=== PATIENT | male | born 1940 | race Caucasian/White ===

== ENCOUNTER 2016-12-01 16:43 | Emergency (ER) | payer MEDICARE, BC ==
[~2016-12-01] VITALS: Ht 182.9 cm; Wt 95.5 kg
[~2016-12-01 16:43] MED LIST: ACET-2321 PO; ASPI-557 PO; ASPI-917 PO; ATEN-39 PO; ATOR20TA PO; CYAN25006 SL; DULO20CA PO; FEXO180T94 PO; GABA-338 PO; NAPR220C11 PO; NIAC1CAP PO; OMEP-96 PO; OXYC5TAB84 PO; POLY17PO18 PO; TRAZ-170 PO; [UNRECOGNIZED DRUG - CODE] PO
--- OUTSIDE RECORDS SUMMARY | 2016-12-01 16:48 | XMS REPORT | Continuity of Care Document ---
Author Author [facility] Organization [facility] Address Unknown Phone Unavailable Allergies Active Description Code Type Severity Reaction Onset Reported/Identified Relationship to Patient Clinical Status Yes penicillin NKMA N/A N/A 12/21/2013 Medications Problems Procedures Results Encounters ACCT No. Visit Date/Time Discharge Status Pt. Type Provider Facility Loc./Unit Complaint [id number] 08/31/2013 09:48:00 08/31/2013 23 :59:59 CLS Outpatient [id number] 06/16/2013 07:57:00 06/16/2013 23 :59:59 CLS Outpatient
--- OUTSIDE RECORDS SUMMARY | 2016-12-01 16:48 | XMS REPORT | Continuity of Care Document ---
Author Author [facility] Organization [facility] Address Unknown Phone Unavailable Support Name Relationship Address Phone GREG BREWER MD Caregiver [address] [place] [phone] MAYDA SAMAYOA MD Caregiver [address] [place] [address] [phone] SAWYER MILLAN Next Of Kin [address] [place] [phone] CP Insurance Providers Payer Name Policy Number Subscriber Name Relationship Medicare [id number] Phillip Millan 18 Self [employer] [facility] [id number] Phillip Millan 18 Self Advance Directives Directive Response Recorded Date/Time Advanced Directives Type None 03/20/14 10:09am Ordered Resuscitation Status Full Code 03/20/14 10:34am Chief Complaint and Reason for Visit Chief Complaint LEFT TOTAL KNEE ARTHROPLASTY Reason for Visit S/P left knee arthroscopy CAD (coronary artery disease) of artery bypass graft Myxoma of heart Atrial fibrillation GERD (gastroesophageal reflux disease) Dyslipidemia Spinal stenosis Sleep apnea Arthritis Tubular adenoma of colon Degenerative arthritis of left knee Problems Medical Problems Problem Onset Date Status CAD (coronary artery disease) of artery bypass graft Unknown Active Myxoma of heart Unknown Resolved Atrial fibrillation Unknown Resolved GERD (gastroesophageal reflux disease) Unknown Active Dyslipidemia Unknown Active Spinal stenosis Unknown Active Sleep apnea Unknown Active Arthritis Unknown Active Tubular adenoma of colon Unknown Active Degenerative arthritis of left knee Unknown Active Surgical Problems Problem Onset Date Recorded Date/Time Status S/P left knee arthroscopy Unknown 03/21/2014 2:20pm Active Medications Medication Dose Route Sig Days/Qty Instructions Order Date Discontinued Date Status Simvastatin 40 Mg PO BEDTIME 12/04/09 Active Aspirin 81 Mg PO DAILY 12/04/09 03/24/14 Discontinued Naproxen 250 Mg PO NEEDED 12/04/09 Active Atenolol 50 Mg PO DAILY 12/04/09 Active Omeprazole 20 Mg PO TWICE A DAY 09/14/13 Active Niacin 1,000 Mg PO TWICE A DAY 09/14/13 Active Cyanocobalamin (Vitamin B-12) 2,500 Mcg SL DAILY 01/26/14 Active Mometasone Furoate DAILY 03/21/14 Active Fexofenadine HCl DAILY 03/21/14 Active [Docusate Sodium] 100 Mg PO TWICE A DAY 30 Qty 03/24/14 Active Gabapentin 300 Mg PO TWICE A DAY 28 Qty 03/24/14 Active Hydrocodone/Acetaminophen 0 Tab PO Q4H PRN PAIN 60 Qty 03/24/14 Active Multivits,Th W-Fe,Other Min 1 Tab PO DAILY 30 Qty 03/24/14 Active Oxycodone HCl 10 Mg PO EVERY 12 HOURS 28 Qty 03/24/14 Active Enoxaparin Sodium 40 Mg SQ Q24H 30 Qty 03/24/14 Active Social History Social History Problem Response Recorded Date/Time Smoking Status Never smoker 03/21/2014 9:06am Chewing Tobacco Status No 09/14/2013 1:00pm Hx Substance Use No 09/14/2013 1:00pm Hx Alcohol Use No 09/14/2013 1:00pm Has the pt used tobacco in the last 12 months No 09/15/2013 4:30pm Query Response Start Date Stop Date Smoking Status Never smoker Hospital Discharge Instructions Instructions: Care Instructions: Reason for Hospitalization: Left total knee replacement I was in the hospital because (patient own words): left knee surgery total Discharge Diet: Regular Discharge Activity: Walk regularly. Try to walk a little farther each day. This will help prevent many of the complications that are possible after a total joint replacement. This would include things like pneumonia, blood clots and constipation. Follow Up Appointments: DR BREWER ON 04-01-14 1:OO PM FOR LT KNEE PHONE# [phone] Patient Instructions: Swelling 1.Elevate operative extremity above the level of your heart if possible. This will facilitate the movement of fluid back into your body. 2.Do not sit for more than 1 hour at a time. 3.Ice can be used as tolderated - do not apply directly to skin and only leave on for 20 minutes at a time. Constipation 1.Take a stool softener (Colace, Sennokot-S,etc) as needed to prevent constipation 2.Wean yourself off narcotics as soon as possible. Blood Clot prevention 1.Take your anticoagulant (Aspirin, Coumadin, Lovenox,etc) as directed Driving 1.May drive in 4 weeks if you had your LEFT extremity operated on. 2.May drive in 6 weeks if you had your RIGHT extremity operated on. Wound/Incision Care: Tegaderm 1.Clear dressing is to remain in place for 2 weeks. 2.Do not pick at it or scrub it while showering. 3.If the dressing begins to pull up, secure it with 4x4 gauze pad and tape. 4.You may shower; however, do not submerge yourself in water until the incision is completely healed. Mepilex 1.Dressing to remain in place until your follow up appointment. 2.If this dressing starts peeling up slightly, it may be reinforced, if it peels excessively, notify your surgeon's office. 3.You may shower with the dressing in place, but do not submerge in water 4.Do not allow water to seep under the dressing, if it should seep under, remove the dressing and notify your surgeon. Notify Physician If: Call your Surgeon if you have: 1.Chest pain, difficulty breathing, fever>100.5 degrees, chills, heart rate >100, confusion, or persistent nausea/vomitting. 2.Severe pain, swelling, redness, or warmth in either of your legs. 3.During office hours, call [phone] 4. After hours, please call [facility] at [phone], and have the blow down operator page your Surgeon IN THE EVENT OF AN EMERGENCY, seek medical care at the nearest Emergency Room General Information: Do not remove the Meplix dressing until seen for follow up with Dr. Brewer. Please provide SCD's for patient while in bed. Condition at time of discharge: Good Care Plan Discharge Patient: Goal: Understand discharge plan Patient Instructions: see patient instructions Plan of Care Discharge Date 03/24/14 3:15pm Disposition 04 TO [facility] Instructions/Education Provided [facility] [place] Dismissal Prescriptions See Medications Section Functional Status Query Response Date Recorded Physical Hygiene Assist March 24, 2014 2:46pm Disabilities None March 24, 2014 2:46pm Devices Used Glasses Walker March 24, 2014 2:46pm Dressing Assist March 24, 2014 2:46pm Ambulation Assist March 24, 2014 2:46pm Diet Self March 24, 2014 2:46pm Mental Status Alert Oriented Occasionally Confused March 24, 2014 2:46pm Disabilities None March 24, 2014 2:46pm Devices Used Glasses Walker March 24, 2014 2:46pm Physical Hygiene Assist March 24, 2014 2:46pm Dressing Assist March 24, 2014 2:46pm Ambulation Assist March 24, 2014 2:46pm Diet Self March 24, 2014 2:46pm Allergies, Adverse Reactions, Alerts Allergen Type Severity Reaction Status Last Updated Penicillin Allergy Unknown PT DOES NOT KNOW Active 09/14/13 WIGGINS PEPPERS Adverse Reaction Unknown GI UPSET Active 03/20/14 shrimp Allergy Severe ANAPHYLACTIC SHOCK Active 03/21/14 Immunizations Name Given Type Hx Influenza Vaccination Y 05/2013 Historical Hx Pneumococcal Vaccination Y 2006 Historical Hx Influenza Vaccination Y 05/2013 Historical Vital Signs Acute Vital Signs Vital Response Date/Time Temperature (Fahrenheit) 97.0 deg F (96.8 - 99.1) Temperature (Calculated Celsius) 36.30897 degrees C (36.0 - 37.3) Temperature Source Temporal Pulse Rate (adult) 64 bpm (60 - 100) Respiratory Rate 16 breaths/min (10 - 20) O2 Sat by Pulse Oximetry 100 % (90 - 100) Blood Pressure 113/65 mm Hg Blood Pressure Source Automatic Cuff Height 6 ft 0 in Weight 199 lb Body Mass Index 27.0 kg/m^2 Results Test Source Date Result Interp. Ref. Range Comments Activated Partial Thromboplast Time March 14, 2014 8:58am 29.3 SEC N 24- 36 Alanine Aminotransferase (ALT/SGPT) December 04, 2009 12:20am 11 U/L L 21- 72 Albumin December 04, 2009 12:20am 4.27 G/DL N 3.5-5.0 Albumin/Globulin Ratio December 04, 2009 12:20am 1.6 RATIO N 1.1-2.2 Alkaline Phosphatase December 04, 2009 12:20am 63 U/L N 38-126 Anion Gap March 23, 2014 4:22am 8 MEQ/L N 5-15 Aspartate Amino Transf (AST/SGOT) December 04, 2009 12:20am 26 U/L N 17-59 B-Type Natriuretic Peptide December 04, 2009 12:20am 74 PG/ML N 15-100 BUN/Creatinine Ratio March 23, 2014 4:22am 14 RATIO N 6-26 Basophils # (Auto) March 14, 2014 8:58am 0.0 T/MM3 N 0-0.2 Basophils (%) (Auto) March 14, 2014 8:58am 0.4 % N 0-2 Blood Urea Nitrogen March 23, 2014 4:22am 13.0 MG/DL N 9-20 Calcium Level March 23, 2014 4:22am 8.7 MG/DL N 8.4-10.2 Calculated Osmolality March 23, 2014 4:22am 264 MOSM/KG N 261-280 Carbon Dioxide Level March 23, 2014 4:22am 31 MEQ/L H 22-30 Chemistry Specimen Hemolysis March 23, 2014 4:22am < 15 0-25 0-25: No Hemolysis.26-70: Slight Hemolysis - can falsely elevate K and Urine Protein. 71-285: Moderate Hemolysis - can falsely elevate K, Troponin I, CA 19-9, PTH, CSF GLucose, and Urine Protein, and can falsely decrease Phenytoin. 286-999: Gross Hemolysis - can falsely elevate K, Troponin I, CA 19-9, PTH, CSF Glucose, and Urine Protine, and can falsely decrease Phenytoin. Recommend specimen recollection. Chloride Level March 23, 2014 4:22am 98 MEQ/L N 98-107 Creatinine March 23, 2014 4:22am 0.9 MG/DL N 0.8-1.5 D-Dimer December 04, 2009 12:20am 286 NG/ML H 0-224 <224 NG/ML= PRESUMPTIVE NEGATIVE FOR PE OR DVT>224 NG/ML=ADDITIONAL EVALUATION FOR PE OR DVT RECOMMENDED Eosinophils # (Auto) March 14, 2014 8:58am 0.1 T/MM3 N 0-0.5 Eosinophils (%) (Auto) March 14, 2014 8:58am 1.3 % N 0-4 Erythrocyte Sedimentation Rate March 14, 2014 8:58am 2 MM/HR N 0-15 Globulin December 04, 2009 12:20am 2.7 G/DL N 2.4-3.6 Glomerular Filtration Rate Calc March 23, 2014 4:22am 83 - Glucose Level March 23, 2014 4:22am 97 MG/DL N 75-110 Hematocrit March 24, 2014 4:47am 37.1 % L 41-53 Hemoglobin March 24, 2014 4:47am 12.5 GM/DL L 13.5-17.5 Hemoglobin A1c March 14, 2014 8:58am 5.0 % L 6-7 <6.0 NON-DIABETIC RANGE6.0-7.0 ADA THERAPEUTIC RANGE >7.0 ACTION SUGGESTED Icterus Index March 23, 2014 4:22am < 2 0-7 Immature Granulocyte # (Auto) March 14, 2014 8:58am 0.01 T/MM3 N 0.00- 0.03 Immature Granulocyte % (Auto) March 14, 2014 8:58am 0.2 % N 0.0-0.5 Lab Scanned Report March 14, 2014 9:31am LAB TEST FORM REQUEST [id number] - Lymphocytes # (Auto) March 14, 2014 8:58am 1.4 T/MM3 N 1-4.8 Lymphocytes (%) (Auto) March 14, 2014 8:58am 29.1 % N 23-45 MRSA Specimen Source January 24, 2014 1:57pm Nasal - Mean Corpuscular Hemoglobin March 24, 2014 4:47am 31.8 UUG N 26-34 Mean Corpuscular Hemoglobin Concent March 24, 2014 4:47am 33.7 GM/DL N 31-37 Mean Corpuscular Volume March 24, 2014 4:47am 94.4 UM3 N 80-100 Mean Platelet Volume March 24, 2014 4:47am 12.1 UM3 N 9.4-12.4 Methicillin-Resist S.aureus DNA PCR January 24, 2014 1:57pm Negative - Monocytes # (Auto) March 14, 2014 8:58am 0.5 T/MM3 N 0-0.8 Monocytes (%) (Auto) March 14, 2014 8:58am 11.3 % H 0-9.0 Neutrophils # (Auto) March 14, 2014 8:58am 2.7 T/MM3 N 1.8-7.7 Neutrophils (%) (Auto) March 14, 2014 8:58am 57.7 % N 33-66 Platelet Count March 24, 2014 4:47am 134 T/MM3 N 130-400 Potassium Level March 23, 2014 4:22am 3.9 MEQ/L N 3.6-5 Prothromb Time International Ratio March 14, 2014 8:58am 0.94 N 0.81- 1.09 THERAPUTIC RANGE=2.00-3.00 FOR ANTI-THROMBOSIS THERAPUTIC RANGE=2.50- 3.50 FOR IMPLANTED VALVE RDW Standard Deviation March 24, 2014 4:47am 41.3 FL N 36.9-50.2 Red Blood Count March 24, 2014 4:47am 3.93 M/MM3 L 4.50-5.90 Sodium Level March 23, 2014 4:22am 137 MEQ/L N 134-144 Total Bilirubin December 04, 2009 12:20am 0.38 MG/DL N 0.20-1.30 Total Protein December 04, 2009 12:20am 7.0 G/DL N 6.3-8.2 Troponin I December 04, 2009 12:20am 0.006 ng/ml N 0-0.12 Turbidity March 23, 2014 4:22am < 20 0-20 Urinalysis Comment March 14, 2014 8:58am Microscopic not ind. - Urine Bilirubin March 14, 2014 8:58am Negative - Urine Blood March 14, 2014 8:58am Negative - Urine Collection Type March 14, 2014 8:58am Cleancatch-midstream - Urine Color March 14, 2014 8:58am Yellow - Urine Glucose (UA) March 14, 2014 8:58am Negative - Urine Ketones March 14, 2014 8:58am Negative - Urine Leukocyte Esterase March 14, 2014 8:58am Negative - Urine Nitrite March 14, 2014 8:58am Negative - Urine Protein March 14, 2014 8:58am Negative - Urine Specific Jerome March 14, 2014 8:58am 1.025 - Urine Turbidity March 14, 2014 8:58am Clear - Urine Urobilinogen March 14, 2014 8:58am 0.2 EU/DL - Urine pH March 14, 2014 8:58am 6.0 - White Blood Count March 24, 2014 4:47am 8.2 T/MM3 N 4.5-11.0 Name: PHILLIP MILLAN Unit #: [id number] : 1940 Sex: M Loc / Svc: MED DOS: Signed Report #: [id number] DIAGNOSTIC IMAGING REPORT TYPE OF EXAM: KNEE LEFT 2 VIEW Dictated By: COLE COTTO MD INDICATION: ITS.REASON: OPERATIVE JOINT COMPARISON: none. KNEE LEFT 2 VIEW: AP and lateral images show a normal total knee arthroplasty. No evidence of fracture or retained instruments. IMPRESSION: Negative x-rays. . Procedures Procedure Status Date Provider(s) [id number] completed 01/26/14 ZEB SALINAS MD, FACS, CWS Total knee arthroplasty completed 03/21/14 GREG BREWER MD Encounters Encounter Location Date/Time Discharged Inpatient [facility] 03/21/14 8:09am Registered Clinic [facility] 03/14/14 8:40am Registered Clinic [facility] 01/24/14 1:49pm Recent Diagnosis CAD (coronary artery disease) of artery bypass graft Myxoma of heart Atrial fibrillation GERD (gastroesophageal reflux disease) Dyslipidemia Spinal stenosis Sleep apnea Arthritis Tubular adenoma of colon Degenerative arthritis of left knee
[2016-12-01 16:52] VITALS: Ht 182.9 cm; Wt 95.5 kg
--- NOTE | 2016-12-01 17:00 | NUR ---
HANDOFF COMMUNICATION Report to Araceil regarding patient's history of present injury, c-spine injury and past history of knee replacement [address] Brewer Ambulates to TA with steady gait.
--- NOTE | 2016-12-01 17:06 | ERPDOC ---
Departure Disposition Decision Date: Dec 01, 2016 Disposition Decision Time: 18:08 Disposition: 01 DISCHARGED HOME, SELF-CARE Impression Impression Impression: Primary Impression: Acute neck sprain Encounter type: initial encounter Qualified Codes: S13.9XXA - Sprain of joints and ligaments of unspecified parts of neck, initial encounter Additional Impression: Fall from one level to another Encounter type: initial encounter Qualified Codes: W17.89XA - Other fall from one level to another, initial encounter Severity: Moderate Condition: Improved Referrals: MAYDA SAMAYOA MD (Family) Follow-up for evaluation Patient Instructions: Fall Prevention for Older Adults (ED) Problems/Meds/Labs Reviewed?: Yes Medications reviewed and manag: Yes Follow up care ordered?: Yes Mental Status: Alert, Oriented Scripts Baclofen (Baclofen) 20 Mg Tablet 1 TAB PO TID, #15 TAB Prov: LEANNE CASTANEDA MD 12/01/16 HPI - Fall/Injury General Chief Complaint: Fall Stated Complaint: FALL,HIT HEAD AND SHOULDER Time Seen by Provider: 17:06 Source: patient, family Exam Limitations: no limitations HPI - Fall/Injury Initial Comments Patient is a 76-year-old male Occurred At: home Onset: Rapid Allergies: Coded Allergies: Penicillins (Verified Allergy, Unknown, PT DOES NOT KNOW, 12/01/16) Uncoded Allergies: shrimp (Allergy, Severe, ANAPHYLACTIC SHOCK, 03/21/14) WIGGINS PEPPERS (Adverse Reaction, Unknown, GI UPSET, 03/20/14) Past History Past Medical History Metabolic: hypercholesterolemia Cardiac: A-fib, other Musculoskeletal: osteoarthritis, other Psychological: anxiety Surgical History General: colonoscopy Cardiac: other Family History Family PMH: FOUND: cancer Vaccines Hx Influenza Vaccination: Yes (may 2016) Hx Pneumococcal Vaccination: Yes (May 2016) Social History Does patient use chewing tobac: No Substance Use Type: does not use Sexuality: female partner Review of Systems Constitutional Constitutional: DENIES: appetite decrease, chills, dizziness, fever, weakness Eyes Vision: DENIES: blurring, double vision, loss of visual kay ENMT Sinuses: DENIES: congestion, rhinorrhea Mouth/Throat: DENIES: scratchy throat, sore throat Cardiovascular Cardiac: DENIES: chest pain, dyspnea on exertion Pulmonary Respiratory: DENIES: cough, dyspnea, sputum, tachypnea GI Upper Abdomen: DENIES: nausea, pain, vomiting Lower Abdomen: DENIES: constipation, diarrhea, pain General: DENIES: frequency, urgency Musculoskeletal General: see HPI Integumentary Skin: DENIES: color change, itching, rash Neurological General: headache, DENIES: change in strength, numbness, weakness Endocrine Endocrine: DENIES: heat/cold intolerance Hematologic/Lymphatic Hematologic/Lymphatic: DENIES: anemia Physical Exam General General Nourishment: well nourished, well developed General Body Habitus: well groomed Vitals and Pain Weight: Kilograms: 95.450 Height (feet): 6 Height (inches): 0 Triage Pain Scale: RN VS reviewed by Provider: Yes Eyes (brief) Eyes Brief: found: EOMI, PERRL ENMT (brief) ENMT Brief: FOUND: mucosa moist, normal dentition, NOT FOUND: nasal erythema, pharnyx erythema, tonsillar deviation Neck (brief) Neck: FOUND: spasm, tenderness (tender to palpation of C-spine approximately C6 ), NOT FOUND: adenopathy, nuchal rigidity Respiratory (brief) Respiratory: FOUND: clear all kay, equal bilaterally, NOT FOUND: rales, wheezes Cardiovascular (brief) Cardiac: FOUND: regular rate, regular rhythm Capillary Refill: <2 sec Abdomen (brief) Abdominal Brief: FOUND: bowel normo active x4, soft, NOT FOUND: distended, tender Lymphatic (brief) Lymphatic Brief: NOT FOUND: adenopathy Musculoskeletal (brief) Musculoskeletal Brief: FOUND: spasm, tenderness (see above) Integumentary (brief) Integumentary Brief: FOUND: dry, pink, warm, NOT FOUND: rash Neurologic (brief) Neurological Brief: FOUND: CN w/o gross def to obs Neurologic Mental Status: FOUND: alert, oriented GCS Adult : GCS Eye Opening: (4)Spontaneous GCS Verbal: (5)Oriented GCS Motor: (6)Obeys Commands GCS Total: 15 Cranial Nerves: FOUND: other (cranial nerves II through XII intact) Motor : Motor Side: bilateral Motor Location: biceps, triceps, wrist, finger extensors, finger flexors, quadriceps, hamstring, foot extension, foot flexion, 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 Motor Degree: 5 Sensation: FOUND: soft touch intact x4 ext DTR's : DTR Side: bilateral DTR Location: Biceps, Patellar DTR Grade: 2+ Psychiatric (brief) Psychiatric Brief: FOUND: alert, oriented Differential Diagnoses Considering: Concussion, Contusion, Epidural Hematoma, Dislocation, Fracture, Sprain, Strain, Subdural Hematoma Progress Results/Orders Orders Procedure Category Date Status Time Ct Head W/O Contrast CT 12/01/16 Resulted 17:11 Ct Cervical Spine W/O CT 12/01/16 Resulted Contrast 17:11 Ketorolac (Toradol) PHA 12/01/16 Complete 18:15 Orphenadrine (Norflex) PHA 12/01/16 Complete 18:15 Medications Current ED Medications Ketorolac Tromethamine (Toradol) 60 mg O ONCE IM Last administered on 18:18; Start 12/01/16 at 18:15; Stop 12/01/16 at 18:16; Status DC Orphenadrine Citrate (Norflex) 60 mg O ONCE IM Last administered on 12/01/16 18:16; Start 12/01/16 at 18:15; Stop 12/01/16 at 18:16; Status DC CT CT #1: CT: Head no contrast Interpretation: Normal, Faxed Report CT #2: CT: C-Spine no contrast Interpretation: Normal, Faxed Report LEANNE CASTANEDA MD Dec 01, 2016 17:06
[2016-12-01] MEDS ORDERED: ASPI-917 PO (17:17)
[2016-12-01] MEDS ORDERED: ACET325T51 PO (17:17)
--- NOTE | 2016-12-01 17:37 | NUR ---
RETURNED FROM CT
--- OUTSIDE RECORDS SUMMARY | 2016-12-01 17:45 | XMS REPORT | Continuity of Care Document ---
Author Author [facility] Organization [facility] Address Unknown Phone Unavailable Allergies Active Description Code Type Severity Reaction Onset Reported/Identified Relationship to Patient Clinical Status Yes penicillin NKMA N/A N/A 12/21/2013 Medications Problems Procedures Results Encounters ACCT No. Visit Date/Time Discharge Status Pt. Type Provider Facility Loc./Unit Complaint [id number] 08/31/2013 09:48:00 08/31/2013 23 :59:59 CLS Outpatient [id number] 06/16/2013 07:57:00 06/16/2013 23 :59:59 CLS Outpatient
--- OUTSIDE RECORDS SUMMARY | 2016-12-01 17:45 | XMS REPORT | Continuity of Care Document ---
Author Author [facility] Organization [facility] Address Unknown Phone Unavailable Support Name Relationship Address Phone GREG LOMAX MD Caregiver [address] [place] [address] Unavailable GREG LOMAX MD Caregiver [address] [place] [address] Unavailable MAYDA SAMAYOA MD Caregiver [address] [place] [address] [place] [address] Unavailable SAWYER MILLAN Next Of Kin [address] [place] [phone] Insurance Providers Guarantor Phillip Millan Address [address] [place] [address] CP Email [email or web address] Payer Medicare Policy Number [id number] Subscriber's Name Phillip Millan Relationship 18 Self Effective Date 05 Payer [facility] Policy Number [id number] Subscriber's Name Phillip Millan Relationship 18 Self Group Number [id number] Advance Directives Directive Response Recorded Date/Time Ordered Resuscitation Status Full Code 10/27/16 10:27am DPOA for Healthcare Only Yes 10/28/16 10:30am Living Will Yes 10/28/16 10:30am Problems Active Problems Medical Problem Onset Date Status Atrial fibrillation Unknown Chronic CAD (coronary artery disease) of artery bypass graft Unknown Chronic Degenerative arthritis of right knee Unknown Chronic Dyslipidemia Unknown Chronic GERD (gastroesophageal reflux disease) Unknown Chronic Overweight (BMI 25.0-29.9) Unknown Sleep apnea Unknown Acute Surgical Problem Onset Date Status S/P left knee arthroscopy Unknown Acute Past Problems Medical Problem Onset Date Arthritis Unknown Degenerative arthritis of left knee Unknown Myxoma of heart Unknown Spinal stenosis Unknown Tubular adenoma of colon Unknown Medications Current Home Medications Medication Dose Units Route Directions Days Qty Instructions Start Date Acetaminophen (Tylenol) 325 Mg Tablet 650 Mg Oral Four Times Daily 100 Tablet 10/29/16 Aspirin (Aspir 81) 81 Mg Tablet. 1 Tab Oral Daily 10/06/16 Aspirin (Aspirin Ec) 325 Mg Tablet. 325 Mg Oral Twice A Day 84 Tablet 10/29/16 Atenolol 50 Mg Tablet 50 Mg Oral Every Evening 12/04/09 Atorvastatin Calcium (Lipitor) 20 Mg Tablet 1 Tab Oral Bedtime Cyanocobalamin (Vitamin B-12) (B-12) 2,500 Mcg Tab.subl 2,500 Mcg Sublingual Daily 01/26/14 Duloxetine Hcl (Cymbalta) 20 Mg Capsule 1 Cap Oral Daily 10/06/16 Fexofenadine Hcl (Ainsley Allergy) 180 Mg Tablet Daily Gabapentin 300 Mg Capsule 1 Cap Oral Bedtime as needed for Pain 10/23/16 Multivits,Th W-Fe,Other Min (Complete Multivitamin) 1 Each Tablet 1 Tab Oral Daily 10/06/16 Naproxen Sodium (Aleve) 220 Mg Capsule 1 Cap Oral As Needed as needed for Pain 10/06/16 Niacin (Inositol Niacinate) (Niacin 500 Mg Capsule) 500 Mg Capsule 2 Cap Oral Twice A Day 10/06/16 Omeprazole Magnesium 20 Mg Capsule. 2 Cap Oral Daily 10/23/16 Oxycodone Hcl 5 Mg Tablet 5-15 Mg Oral Every 3 Hours as needed for Breakthrough Pain 60 Tablet 10/29/16 Polyethylene Glycol 3350 (Healthylax) 17 Gm Powd.pack 17 G Oral Daily 30 Packet 10/29/16 Trazodone Hcl 50 Mg Tablet 50 Mg Oral Bedtime MAY REPEAT X1 Past Home Medications Medication Directions Ordered Status Aspirin 81 Mg Tablet, 81 Mg Oral Daily 12/04/09 Discontinued Gabapentin 300 Mg Capsule, 300 Mg Oral Twice A Day 03/24/14 Discontinued Multivits,Th W-Fe,Other Min (Therems-H) 1 Tab Tablet, 1 Tab Oral Daily Discontinued Niacin 1,000 Mg Tablet.sa, 1000 Mg Oral Twice A Day 09/14/13 Discontinued Omeprazole 10 Mg Capsule.dr, 20 Mg Oral Twice A Day 09/14/13 Discontinued Social History Social History Problem Response Recorded Date/Time Onset Date Status Reason for Hospitalization Total Knee Arthroplasty 10/29/2016 4:38pm Not Applicable Not Applicable Chewing Tobacco Status No 09/14/2013 1:00pm Not Applicable Not Applicable Hx Substance Use No 10/28/2016 10:32am Not Applicable Not Applicable Hx Alcohol Use Y rarely has wine 10/28/2016 10:32am Not Applicable Not Applicable Has the pt used tobacco in the last 12 months No 10/28/2016 10:32am Not Applicable Not Applicable Tobacco Usage none 03/21/2014 2:09pm Not Applicable Not Applicable Query Response Start Date Stop Date Smoking Status Never smoker Hospital Discharge Instructions Instructions: Care Instructions: Reason for Hospitalization: Total Knee Arthroplasty I was in the hospital because (patient own words): REPLACING RIGHT KNEE Discharge Diet: Resume normal diet as tolerated Discharge Activity: Continue the exercises you were given in the hospital three times a day. Your therapist will provide you with a home therapy program prior to your hospital discharge. As you feel stronger, increase the number of repetitions you do in each session. Please check with us before you swim, use a whirlpool, drive or ride a bicycle. Follow Up Appointments: Follow up as scheduled Pending Lab / Results: No Pending Lab Patient Instructions: Driving may be resumed once you are no longer taking narcotic medications and feel you can safely operate the vehicle. You may wish to practice in an empty parking lot at first. Keep in mind that your reaction time will be delayed for up to 6 weeks after surgery. Contact your surgeon for antibiotics to take before having dental work. Wound/Incision Care: In most cases, a Mepilex dressing will be placed at the time of surgery. This dressing will not need to be covered while showering. Leave dressing in place until your follow-up appointment as long as it remains clean, dry and stuck down well around the edges. Call your Doctor if you encounter a problem with your dressing. Please avoid submerging your incision until it is completely healed, once the Mepilex dressing is removed. This includes bathtubs, swimming pools, and hot tubs. DO NOT USE ALCOHOL, PEROXIDE, OR OINTMENTS of any kind on your incision. Pain Management/Treatment: Ice packs may be used, and will also help with the pain. You will be given a prescription for pain. Expected Signs/Symptoms: Some swelling around the incision, as well as in your feet and legs is normal. To help with this, elevate your feet on a footstool when sitting in a chair, and do the ankle pumps and circles whenever you are sitting still. Muscle action helps to move collected fluid out of the tissues and improve circulation. Ice packs may be used, and will also help with the pain. Report any persistent swelling, calf tenderness, increase in pain, or pain in the calf with warmth, or redness to your doctor. Notify Physician If: Report any complications to my office immmediately. This includes excessive bleeding, wound breakdown, redness around the wound, uncontrolled pain, or fever over 101 on 3 different measurements. Eat a balanced diet and get plenty of rest. During Business Hours:: If you have any questions or concerns, please call during regular office hours ([phone]). After Business Hours:: If you have any problems or need to reach a physician after hours or on the weekend please call the hospital's main number [phone] to have your physician paged. Condition at time of discharge: Good Plan of Care Discharge Date 10/29/16 5:05pm Disposition 01 DISCHARGED HOME, SELF-CARE Instructions/Education Provided [facility] Postop Instructions [facility] General Instructions Prescriptions See Medication Section Additional Instructions/Education [facility] ON 11/01/2003 AT 3:00PM FOR PHYSICAL THERAPY EVAL. PHONE [phone] LOMAX 11-24-16 @ 9:45AM Care Plan and Goals See Discharge Instructions Section Functional Status Query Response Date Recorded Mobility Status Ambulatory w/assist October 29, 2016 4:38pm Assistive Devices Standard Walker October 29, 2016 4:38pm Activity Limitations Weakness October 29, 2016 4:38pm Feeding Ability Independent October 29, 2016 4:38pm Toileting Ability Independent October 29, 2016 4:38pm Grooming Ability Independent October 29, 2016 4:38pm Dressing Ability Independent October 29, 2016 4:38pm Driving Ability Dependent October 29, 2016 4:38pm Housework Ability Dependent October 29, 2016 4:38pm Meal Preparation Ability Assist October 29, 2016 4:38pm Stair Climbing Ability Independent October 29, 2016 4:38pm Ability to complete ADL's impeded by Impaired Mobility October 29, 2016 4:38pm Cognitive/Perceptual Impairments None October 29, 2016 4:38pm Preferred Method of Learning Reading October 28, 2016 6:40pm Allergies, Adverse Reactions, Alerts Allergen Type Severity Reaction Status Last Updated Penicillin Allergy Unknown PT DOES NOT KNOW Active 10/28/16 WIGGINS PEPPERS Adverse Reaction Unknown GI UPSET Active 03/20/14 shrimp Allergy Severe ANAPHYLACTIC SHOCK Active 03/21/14 Immunizations Query Response on File Recorded Date/Time Hx Influenza Vaccination Y may 2016 10/28/16 10:32am Hx Pneumococcal Vaccination Y May 2016 10/28/16 10:32am Hx Influenza Vaccination Y may 2016 10/28/16 10:32am Influenza Vaccine Hx JUNE 2016 10/29/16 1:41pm Vital Signs Acute Vital Signs Vital Response Date/Time Temperature (Fahrenheit) 97.7 deg F (96.8 - 99.1) 10/29/2016 12:12pm Temperature (Calculated Celsius) 36.50851 degrees C (36.0 - 37.3) 10/29/2016 12:12pm Temperature Source Temporal 10/29/2016 12:12pm Pulse Rate (adult) 57 bpm (60 - 100) 10/29/2016 12:12pm Respiratory Rate 16 breaths/min (10 - 20) 10/29/2016 12:12pm O2 Sat by Pulse Oximetry 100 % (90 - 100) 10/29/2016 12:12pm Oxygen Delivery Method Room Air 10/29/2016 12:12pm Oxygen Delivery Method Room Air 10/28/2016 2:30pm Blood Pressure 111/65 mm Hg 10/29/2016 12:12pm Blood Pressure Source Automatic Cuff 10/29/2016 12:12pm Height (Feet) 6 feet 10/29/2016 8:52am Height (Inches) 0.00 inches 10/29/2016 8:52am Weight (Kilograms) 96.500 kg 10/29/2016 7:24am Body Mass Index (BMI) 28.4 10/28/2016 10:44am Results Laboratory Results Test Name Result Units Flags Reference Collection Date/Time Result Date/ Time Comments White Blood Count 11.6 T/MM3 H 4.5-11.0 10/29/2016 4:24am 10/29/2016 5: 28am Red Blood Count 3.94 M/MM3 L 4.50-5.90 10/29/2016 4:24am 10/29/2016 5: 28am Hemoglobin 12.3 GM/DL L 13.5-17.5 10/29/2016 4:24am 10/29/2016 5:28am Hematocrit 36.2 % L 41-53 10/29/2016 4:24am 10/29/2016 5:28am Mean Corpuscular Volume 91.9 UM3 80-100 10/29/2016 4:10/29/2016 5: 28am Mean Corpuscular Hemoglobin 31.2 UUG 26-34 10/29/2016 4:2016 5:28am Mean Corpuscular Hemoglobin Concent 34.0 GM/DL 31-37 10/29/2016 4:10/29/2016 5:28am RDW Standard Deviation 39.0 FL 36.9-50.2 10/29/2016 4:10/29/2016 5 :28am Platelet Count 149 T/MM3 130-400 10/29/2016 4:10/29/2016 5:28am Mean Platelet Volume 10.7 UM3 9.4-12.4 10/29/2016 4:10/29/2016 5: 28am Icterus Index < 2 0-7 10/29/2016 4:10/29/2016 5:38am Chemistry Specimen Hemolysis < 15 0-25 10/29/2016 4:10/29/2016 5 :38am 0-25: Specimen Exhibited No Hemolysis. Turbidity < 20 0-20 10/29/2016 4:10/29/2016 5:38am Sodium Level 137 MEQ/L 134-144 10/29/2016 4:10/29/2016 5:38am Potassium Level 4.5 MEQ/L 3.6-5 10/29/2016 4:10/29/2016 5:38am Chloride Level 104 MEQ/L 98-107 10/29/2016 4:10/29/2016 5:38am Carbon Dioxide Level 25 MEQ/L 22-30 10/29/2016 4:10/29/2016 5: 38am Anion Gap 8 MEQ/L 5-15 10/29/2016 4:10/29/2016 5:38am Blood Urea Nitrogen 21.0 MG/DL H 9-20 10/29/2016 4:10/29/2016 5: 38am Creatinine 0.8 MG/DL 0.8-1.5 10/29/2016 4:10/29/2016 5:38am BUN/Creatinine Ratio 26 RATIO 6-26 10/29/2016 4:10/29/2016 5:38am Glomerular Filtration Rate Calc 94 10/29/2016 4:24am 10/29/2016 5: 38am Glucose Level 168 MG/DL H 75-110 10/29/2016 4:24am 10/29/2016 5:38am Calculated Osmolality 271 MOSM/KG 261-280 10/29/2016 4:24am 10/29/2016 5:38am Calcium Level 8.6 MG/DL 8.4-10.2 10/29/2016 4:24am 10/29/2016 5:38am Name: PHILLIP MILLAN Unit #: [id number] : 1940 Sex: M Admit Date: 10/28/16 Loc / Svc: SRG Discharge Date: DIAGNOSTIC IMAGING REPORT Report #: [id number] [place], [place] Indication: ITS.REASON: POSTOP right knee replacement PROCEDURE: KNEE RIGHT 2 VIEW: Encounter: Initial Comparison: None Findings: Postoperative changes of right total knee replacement are seen. There is expected postoperative subcutaneous gas. No evidence of hardware failure or acute fracture. No retained radiopaque surgical instruments or sponges. Overlying material causing artifact. Impression: New right total knee prosthesis without evidence of immediate complication. . Procedures Procedure Status Date Provider(s) Total replacement of right knee joint Completed 10/28/16 GREG LOMAX MD Encounters Encounter Location Arrival/Admit Date Discharge/Depart Date Attending Provider Discharged Inpatient [facility] 10/28/16 10:02am 10/29/16 5:05pm GREG LOMAX MD
--- OUTSIDE RECORDS SUMMARY | 2016-12-01 17:45 | XMS REPORT | Continuity of Care Document ---
Author Author [facility] Organization [facility] Address Unknown Phone Unavailable Support Name Relationship Address Phone GREG BREWER MD Caregiver [address] [place] [phone] MAYDA SAMAYOA MD Caregiver [address] [place] [address] [phone] SAWYER MILLAN Next Of Kin [address] [place] [phone] CP Insurance Providers Payer Name Policy Number Subscriber Name Relationship Medicare [id number] Phillip Millan 18 Self [employer] [facility] [id number] Phillip Millan 18 Self Advance Directives Directive [...] 04-01-14 1:OO PM FOR LT KNEE PHONE# [phone] Patient Instructions: Swelling 1.Elevate operative extremity above [...] of your legs. 3.During office hours, call [phone] 4. After hours, please call [facility] at [phone], and have the oakes machine operator page your Surgeon IN THE EVENT [...] Discharge Date 03/24/14 3:15pm Disposition 04 TO [facility] Instructions/Education Provided [facility] [place] Prescriptions See Medications Section Functional [...] F (96.8 - 99.1) Temperature (Calculated Celsius) 36.91986 degrees C (36.0 - 37.3) Temperature Source [...] 14, 2014 9:31am LAB TEST FORM REQUEST [id number] - Lymphocytes # (Auto) March 14, 2014 [...] 14, 2014 8:58am Negative - Urine Specific [place] March 14, 2014 8:58am 1.025 - Urine Turbidity March 14, 2014 8:58am Clear - Urine Urobilinogen March 14, 2014 8:58am 0.2 EU/DL - Urine pH March 14, 2014 8:58am 6.0 - White Blood Count March 24, 2014 4:47am 8.2 T/MM3 N 4.5-11.0 Name: PHILLIP MILLAN Unit #: [id number] : 1940 Sex: M Loc / Svc: MED DOS: Signed Report #: [id number] DIAGNOSTIC IMAGING REPORT TYPE OF EXAM: KNEE LEFT 2 VIEW Dictated By: COLE COTTO MD INDICATION: ITS.REASON: OPERATIVE JOINT COMPARISON: none. KNEE LEFT 2 VIEW: AP and lateral images show a normal total knee arthroplasty. No evidence of fracture or retained instruments. IMPRESSION: Negative x-rays. . Procedures Procedure Status Date Provider(s) [id number] completed 01/26/14 ZEB SALINAS MD, FACS, CWS Total knee arthroplasty completed 03/21/14 GREG BREWER MD Encounters Encounter Location Date/Time Discharged Inpatient [facility] 03/21/14 8:09am Registered Clinic [facility] 03/14/14 8:40am Registered Clinic [facility] 01/24/14 1:49pm Recent Diagnosis CAD (coronary artery disease) of artery bypass graft Myxoma of heart Atrial fibrillation GERD (gastroesophageal reflux disease) Dyslipidemia Spinal stenosis Sleep apnea Arthritis Tubular adenoma of colon Degenerative arthritis of left knee
--- NOTE | 2016-12-01 18:04 | NUR ---
REPORT TO JOVI PATIÑO
--- NOTE | 2016-12-01 18:05 | NUR ---
C-COLLAR REMOVED BY PATIENT AMBULATES TO BATHROOM
[2016-12-01] MEDS ORDERED: BACL20TA PO (18:09)
[2016-12-01] MEDS ORDERED: ORPHENADRINE 60mg/2ml INJECTION IM ONE (18:15)
[2016-12-01] MEDS ORDERED: KETOROLAC 60mg/2ml INJECTION IM ONE (18:15)
[2016-12-01 19:03] VITALS: BP 138/90; PULSE 65; RESP 18; TEMP 97.8; O2SAT 100
--- NOTE | 2016-12-01 19:03 | NUR ---
DISCHARGE PT LEFT ER W/ INSTRUCTIONS FOR CONT CARE FALL W/ RX OF BACOLFEN. PT VERBALIZED UNDERSTANDING AND SIGNED FORM, AMBULATORY W/O ASSIST, ALERT, VS CHARTED, CONDITION IMPROVED PAIN 3/10 AND NO ACUTE DISTRESS.
--- NOTE | 2016-12-02 08:10 | DI ---
Indication: ITS.REASON: fall, hit head PROCEDURE: CT HEAD W/O CONTRAST: Encounter: Initial Comparison: None Technique: Axial CT images through the head were performed without contrast. Iterative Reconstruction dose reducing technique was utilized. FINDINGS: The ventricles are of normal size, shape, and configuration for the patient's age. There is no evidence of acute intracranial hemorrhage, midline displacement, or mass effect. There are scattered areas of low attenuation in the white matter which most likely represent changes of chronic microvascular ischemia. The CT attenuation of the brain parenchyma is otherwise normal within the cerebellum, brain stem, and cerebral hemispheres. The tympanic cavities and mastoid air cells are free of appreciable disease. There are no definite fractures of the skull base, calvarium, or visualized portion of the midface. IMPRESSION: No CT evidence of acute traumatic intracranial injury. There is a preliminary report by virtual radi[facility]. .
--- NOTE | 2016-12-02 08:10 | DI ---
Indication: ITS.REASON: fall, hit head and neck C3 pain PROCEDURE: CT CERVICAL SPINE W/O CONTRAST: Encounter: Initial Comparison: None Technique: Axial CT images through the cervical spine were performed without contrast. Coronal and sagittal reformatted images were also obtained. Automated Exposure Control and Iterative Reconstruction dose reducing techniques were utilized. FINDINGS: The alignment of the cervical spine is normal. 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 Multilevel degenerative changes are present. There is no evidence of acute fracture or subluxation of the cervical spine. The atlantoaxial articulation, dens, and upper cervical spine demonstrate no subluxation. The paraspinal soft tissues and spinal canal appear unremarkable. IMPRESSION: No acute traumatic abnormality of the cervical spine. There is a preliminary report by [facility] radi[facility]. .
== END 2016-12-01 19:03 | disposition home or self-care (01) ==
LOC: ED 16:43
DX: S13.9XXA Sprain of joints and ligaments of unspecified parts of neck, initial encounter (principal); S09.90XA Unspecified injury of head, initial encounter; W17.89XA Other fall from one level to another, initial encounter; Y93.89 Activity, other specified; Y92.008 Other place in unspecified non-institutional (private) residence as the place of occurrence of the external cause; Y99.8 Other external cause status
CPT/HCPCS: 70450; 72125; 96372; 99284; J1885; J2360; L0150